=== PATIENT | male | born 1960 | race Caucasian/White ===

== ENCOUNTER → 2017-03-22 | Outpatient (CLI) | payer OTHER ==
--- NOTE | 2017-03-23 01:34 | REP ---
Clinical: Back pain. Technique: AP, lateral, swimmers views. Findings: Alignment and kyphosis maintained. No acute/chronic fracture or compression injury is identified. Moderate multilevel degenerative changes include endplate sclerosis, disc space narrowing and marginal osteophyte formation. Impression: Moderate multilevel degenerative changes. No acute fracture / compression injury or subluxation. Signed by Hernán Roth MD 03/23/2017 01:24 A
== END ==
LOC: M WUC 16:13
PROVIDERS: ATTEND Physician Assistant
DX: S29.012A Strain of muscle and tendon of back wall of thorax, initial encounter (principal); X58.XXXA Exposure to other specified factors, initial encounter; Y92.89 Other specified places as the place of occurrence of the external cause; Y93.89 Activity, other specified; Y99.8 Other external cause status

== ENCOUNTER → 2017-04-24 | Outpatient (CLI) | payer OTHER ==
[2017-04-24 11:34] LABS: MEAN CORPUSCULAR HEMOGLOBIN 32.8 pg (27.0-33.0); MEAN CORPUSCULAR HGB CONC 33.5 g/dl (32.0-36.5); MEAN CORPUSCULAR VOLUME 97.9 fl (80.0-96.0); RED CELL DISTRIBUTION WIDTH 12.7 % (11.5-14.5); WHITE BLOOD COUNT 7.9 K/mm3 (4.0-10.0)
[2017-04-24 12:48] LABS: ALBUMIN 3.8 GM/DL (3.2-5.2); ALBUMIN/GLOBULIN RATIO 1.09 (1.00-1.93); ALKALINE PHOSPHATASE 94 U/L (45-117); ALT/SGPT 24 U/L (12-78); ANION GAP 8 MEQ/L (8-16); AST/SGOT 16 U/L (15-37); BILIRUBIN,TOTAL 0.5 MG/DL (0.2-1.0); BLOOD UREA NITROGEN 18 MG/DL (7-18); CALCIUM LEVEL 8.7 MG/DL (8.5-10.1); CARBON DIOXIDE LEVEL 24 MEQ/L (21-32); CHLORIDE LEVEL 106 MEQ/L (98-107); CHOLESTEROL LEVEL 176 MG/DL (<200); CREATININE FOR GFR 0.74 MG/DL (0.70-1.30); GLOMERULAR FILTRATION RATE > 60.0 (>56); GLUCOSE, FASTING 100 MG/DL (70-105); POTASSIUM SERUM 4.2 MEQ/L (3.5-5.1); SODIUM LEVEL 138 MEQ/L (136-145); TOTAL PROTEIN 7.3 GM/DL (6.4-8.2); TRIGLYCERIDES LEVEL 72 MG/DL (<150)
--- NOTE | 2017-04-25 02:38 | REP ---
Clinical: Pain. Technique: Internal rotation, external rotation, and Y view. Findings: Mild degenerative changes include cortical irregularity at the acromioclavicular joint with subtle inferior spurring suggested as well as small inferior osteophyte along the humeral head. Subacromial space is normal. No periarticular calcifications identified. Surrounding soft tissues unremarkable. Impression: Mild arthritic degenerative changes. Signed by Hernán Roth MD 04/25/2017 02:30 A
--- NOTE | 2017-04-25 02:44 | REP ---
Clinical: Hypertension and history of COPD . Comparison: 12/16/2014 . Technique: PA and lateral. Findings: The mediastinum and cardiac silhouette are normal. The lung baldwin are clear and without acute consolidation, effusion, or pneumothorax. The skeletal structures are intact and normal. Impression: 1. No acute cardiopulmonary process. Signed by Hernán Roth MD 04/25/2017 02:37 A
--- NOTE | 2017-04-25 02:46 | REP ---
Clinical: Pain. Technique: AP, lateral, bilateral oblique and sunrise views of the right knee. Findings: Moderate tricompartmental osteoarthritic degenerative changes include marginal osteophytes, subchondral sclerosis, joint space narrowing, and mild chondrocalcinosis. Mild prepatellar soft tissue swelling cannot be excluded as well. No obvious effusion. No acute fracture or dislocation. Impression: Moderate tricompartmental osteoarthritic degenerative changes. Signed by Hernán Roth MD 04/25/2017 02:38 A
--- NOTE | 2017-04-25 07:08 | ECGEPIP ---
Stationary ECG Study [facility] Test Date: 2017-04-24 Pat Name: KEVIN WILLETT Department: Room: - Gender: M Director Speech And Hearing: EMANUEL : 1960 Requested By: Selena Merida Order Number: [id number] Reading MD: Sanjay Leong Measurements Intervals [place] Rate: 66 P: 59 OR: 160 QRS: 55 QRSD: 101 T: 58 QT: 392 QTc: 411 Interpretive Statements Normal sinus rhythm Incomplete right bundle-branch block Comparison tracing not on file Electronically Signed On 04-25-2017 7:08:16 EDT by Sanjay Leong
== END ==
LOC: M LAB 10:28
PROVIDERS: ATTEND Family Medicine
DX: I10 Essential (primary) hypertension (principal); J44.9 Chronic obstructive pulmonary disease, unspecified; R53.83 Other fatigue; M19.90 Unspecified osteoarthritis, unspecified site

== ENCOUNTER → 2018-12-07 | Outpatient (CLI) | payer OTHER ==
[2018-12-07 11:32] LABS: HEMATOCRIT 44.4 % (42.0-52.0); HEMOGLOBIN 14.5 g/dl (13.5-17.5); MEAN CORPUSCULAR HEMOGLOBIN 33.9 pg (27.0-33.0); MEAN CORPUSCULAR HGB CONC 32.7 g/dl (32.0-36.5); MEAN CORPUSCULAR VOLUME 103.7 fl (80.0-96.0); PLATELET COUNT, AUTOMATED 207 10^3/uL (150-450); RED BLOOD COUNT 4.28 10^6/uL (4.30-6.10); WHITE BLOOD COUNT 7.2 10^3/uL (4.0-10.0)
[2018-12-07 11:44] LABS: ALBUMIN 3.5 GM/DL (3.2-5.2); ALT/SGPT 16 U/L (12-78); BILIRUBIN,TOTAL 0.2 MG/DL (0.2-1.0); BLOOD UREA NITROGEN 13 MG/DL (7-18); CALCIUM LEVEL 8.6 MG/DL (8.5-10.1); CARBON DIOXIDE LEVEL 26 MEQ/L (21-32); CHLORIDE LEVEL 111 MEQ/L (98-107); CHOLESTEROL LEVEL 152 MG/DL (<200); CHOLESTEROL RISK RATIO 3.619 (<5); CREATININE FOR GFR 0.83 MG/DL (0.70-1.30); GLOMERULAR FILTRATION RATE > 60.0 (>56); GLUCOSE, FASTING 106 MG/DL (70-100); HDL CHOLESTEROL 42 MG/DL (>40); LDL CHOLESTEROL 89 MG/DL (<100); NON-HDL-C 110 MG/DL; POTASSIUM SERUM 4.4 MEQ/L (3.5-5.1); SODIUM LEVEL 143 MEQ/L (136-145); TESTOSTERONE 587 NG/DL (241-827); TOTAL 25(OH) VITAMIN D 14.4 NG/ML (30.0-100.0); TOTAL PROTEIN 6.7 GM/DL (6.4-8.2); TRIGLYCERIDES LEVEL 105 MG/DL (<150)
[2018-12-07 11:49] LABS: HEMOGLOBIN A1c 5.7 %
== END ==
LOC: M SMT 08:17
PROVIDERS: ATTEND Family Medicine
DX: I10 Essential (primary) hypertension (principal); R53.83 Other fatigue; E03.9 Hypothyroidism, unspecified

== ENCOUNTER → 2020-10-19 | Outpatient (CLI) | payer SELFPAY | LOC: M LABSMTC 13:53 | PROVIDERS: ATTEND Pediatrics | DX: Z20.828 Contact with and (suspected) exposure to other viral communicable diseases (principal) ==

== ENCOUNTER → 2020-12-24 | Outpatient (CLI) | payer SELFPAY ==
[~2020-12-24] MED LIST: CVS1CAP2 PO; CYAN500T14 PO; DIPH50CA PO; HYDR-4514 PO; IBUP-1857 PO; MOBI4TAB PO; THERTAB52 PO; VITA500079 PO
== END ==
LOC: M LABSMTC 11:18
PROVIDERS: ATTEND Anesthesiology
DX: Z01.812 Encounter for preprocedural laboratory examination (principal); Z20.822 Contact with and (suspected) exposure to COVID-19

== ENCOUNTER 2020-12-29 11:16 | Day surgery (SDC) | payer OTHER ==
[~2020-12-29] VITALS: Ht 182.9 cm; Wt 90.4 kg
[~2020-12-29 11:16] MED LIST changes: +NS 1,000 ML IV ONE
--- OUTSIDE RECORDS SUMMARY | 2020-12-29 11:22 | CCD | Continuity of Care Document ---
Author Author Sergio GROSS M.D Organization Unknown Address [address] [place] [address] Phone [phone] Care Team Providers Care Creative Guru Name Role Phone Fuad Loredo M.D. AUTM [phone] Problems Active Problems Provider Date Screening for malignant neoplasm of colon David godwin M.D. Onset: 12/22/2020 Social History Type Date Description Comments Sex Unknown ETOH Use Rarely consumes alcohol Tobacco Use Start: Unknown Patient is a current smoker, smo kes every day Recreational Drug Use Regularly uses Marijuana Allergies, Adverse Reactions, Alerts Description No Known Drug Allergies Medications Active Medications SIG Qnty Indications Ordering Provide r Date Sutab [id number] Tablets as directed 1box David Gross M.D. 12/22/[address] 1 cap by mouth every morning 90caps David Gross M.D. 021 Meloxicam 7.5mg Tablets Fuad Loredo M.D. Hydrocodone Bitartrate/Acetaminophen 7.5-325mg Tablets Fuad Loredo M.D. Advil Dual Action /Acetaminophen 125-250mg Tablets Unknown B12 Fast Dissolve 5000mcg Tablets Dispers Unknown D3 High Potency 125mcg (5000 Ut) C apsules Unknown Diphenhydramine HCL 50mg Capsules Unknown Probiotic Capsules Unknown Multiple Vitamin Tablets Unknown Immunizations Description No Information Available Vital Signs Date Vital Result Comment 12/22/2020 10:55am Height 70 inches 5'10" Weight 200.00 lb BP Systolic 133 mmHg BP Diastolic 85 mmHg Heart Rate 65 /min BMI (Body Mass Index) 28.7 kg/m2 Weight 90.720 kg Body Temperature 97.3 F Results Description No Information Available Procedures Description No Information Available Medical Devices Description No Information Available Encounters Type Date Location Provider Dx Diagnosis Office Visit 12/22/2020 10:30a Main Office David Gross M.D. Z 12.11 Encounter for screening for malignant neoplasm of colon R10.9 Unspecified abdominal pain Assessments Date Code Description Provider 12/22/2020 Z12.11 Screening for malignant neoplasm of colon David Gross M.D. 12/22/2020 R10.9 Unspecified abdominal pain Ellie Gross M.D. Plan of Treatment Future Appointment(s):* 12/29/2020 12:45 pm - David Gross M.D. at Main Office 12/22/2020 - David Gross M.D.* Z12.11 Screening for malignant neoplasm of colon* Comments:* 60 yo wm who presents for a screening colonoscopy, and an egd for abdominal pain/burning. Positive c/o abdominal pain, no weight loss, or change in bowel habits. No rectal bleeding. No family h/o colon cancer. No h/o chest pain, or sob. Plan:1.Schedule patient for a colonoscopy + egd.2.Informed consent given to the patient.3.Pt. advised to stop aspirin,plavix, and anticoagulants at least 3 to 7 days prior to the procedure. * R10.9 Unspecified abdominal pain Functional Status Description No Information Available Mental Status Description No Information Available Referrals Description No Information Available
--- OUTSIDE RECORDS SUMMARY | 2020-12-29 11:22 | CCD | Continuity of Care Document ---
Author Author Sergio GROSS M.D Organization Unknown Address [address] [place] [address] Phone [phone] Care Team Providers Care Alteration Specialist Name Role Phone Fuad Loredo M.D. AUTM [phone] Problems Active Problems Provider Date Screening for [...] Qnty Indications Ordering Provide r Date Sutab [id number] Tablets as directed 1box David Gross M.D. [...] Medical Devices Description No Information Available Encounters Description No Information Available Assessments Date Code Description Provider 12/22/2020 Z12.11 Screening for malignant neoplasm of colon David Gross M.D. Plan of Treatment Future Appointment(s):* [...] to 7 days prior to the procedure. Functional Status Description No Information Available Mental Status Description No Information Available Referrals Description No Information Available
--- OUTSIDE RECORDS SUMMARY | 2020-12-29 11:22 | CCD ---
Author Author [facility] Organization [facility] Address Unknown Phone Unavailable Care Team Providers Care Metal Pattern Maker Name Role Phone Bhakti Gross MD Unavailable Unavailable Bhakti Gross MD Unavailable Unavailable Bhakti Gross MD Unavailable Unavailable Bhakti Gross MD Unavailable Unavailable Bhakti Gross MD Unavailable Unavailable Bhakti Gross MD Unavailable Unavailable Bhakti Gross MD Unavailable Unavailable Bhakti Gross MD Unavailable Unavailable Bhakti Gross MD Unavailable Unavailable Bhakti Gross MD Unavailable Unavailable Bhakti Gross MD Unavailable Unavailable Bhakti Gross MD Unavailable Unavailable Bhakti Gross MD Unavailable Unavailable Bhakti Gross MD Unavailable Unavailable Bhakti Gross MD Unavailable Unavailable Bhakti Gross MD Unavailable Unavailable Bhakti Gross MD Unavailable Unavailable Bhakti Gross MD Unavailable Unavailable Bhakti Gross MD Unavailable Unavailable Bhakti Gross MD Unavailable Unavailable Bhakti Gross MD Unavailable Unavailable Bhakti Gross MD Unavailable Unavailable Bhakti Gross MD Unavailable Unavailable Bhakti Gross MD Unavailable Unavailable Bhakti Gross MD Unavailable Unavailable Bhakti Gross MD Unavailable Unavailable Bhakti Gross MD Unavailable Unavailable Bhakti Gross MD Unavailable Unavailable Bhakti Gross MD Unavailable Unavailable Bhakti Gross MD Unavailable Unavailable Bhakti Gross MD Unavailable Unavailable Bhakti Gross MD Unavailable Unavailable Bhakti Gross MD Unavailable Unavailable Ginny S David LAZO Unavailable Unavailable Ginny, S David MD Unavailable Unavailable Ginny, S David MD Unavailable Unavailable Ginny, S David MD Unavailable Unavailable Ginny, S David MD Unavailable Unavailable Ginny, S David MD Unavailable Unavailable Ginny, S David MD Unavailable Unavailable Ginny, S David MD Unavailable Unavailable Ginny, S David MD Unavailable Unavailable Ginny, S David MD Unavailable Unavailable Ginny, S David MD Unavailable Unavailable Ginny, S David MD Unavailable Unavailable Ginny, S David MD Unavailable Unavailable Ginny, S David MD Unavailable Unavailable Ginny, S David MD Unavailable Unavailable Ginny, S David MD Unavailable Unavailable Ginny, S David MD Unavailable Unavailable Michell Loredo MD Unavailable Unavailable Michell Loredo MD Unavailable Unavailable Michell Loredo MD Unavailable Unavailable Michell Loredo MD Unavailable Unavailable Michell Loredo MD Unavailable Unavailable Michell Loredo MD Unavailable Unavailable Michell Loredo MD Unavailable Unavailable Michell Loredo MD Unavailable Unavailable Michell Loredo MD Unavailable Unavailable Michell Loredo MD Unavailable Unavailable Michell Loredo MD Unavailable Unavailable Michell Loredo MD Unavailable Unavailable Michell Loredo MD Unavailable Unavailable Michell Loredo MD Unavailable Unavailable Michell Loredo MD Unavailable Unavailable Michell Loredo MD Unavailable Unavailable Michell Loredo MD Unavailable Unavailable Michell Loredo MD Unavailable Unavailable Michell Loredo MD Unavailable Unavailable Michell Loredo MD Unavailable Unavailable Michell Loredo MD Unavailable Unavailable Michell Loredo MD Unavailable Unavailable Michell Loredo MD Unavailable Unavailable Michell Loredo MD Unavailable Unavailable Michell Loredo MD Unavailable Unavailable Michell Loredo MD Unavailable Unavailable Michell Loredo MD Unavailable Unavailable Michell Loredo MD Unavailable Unavailable Michell Loredo MD Unavailable Unavailable Michell Loredo MD Unavailable Unavailable Michell Loredo MD Unavailable Unavailable Michell Loredo MD Unavailable Unavailable Michell Loredo MD Unavailable Unavailable Michell Loredo MD Unavailable Unavailable Loredo, Jacquie Moid MD Unavailable Unavailable Loredo, Jacquie Moid MD Unavailable Unavailable Loredo, Jacquie Moid MD Unavailable Unavailable Loredo, Jacquie Moid MD Unavailable Unavailable Loredo, Jacquie Moid MD Unavailable Unavailable Loredo, Jacquie Moid MD Unavailable Unavailable Loredo, Jacquie Moid MD Unavailable Unavailable Loredo, Jacquie Moid MD Unavailable Unavailable Loredo, Jacquie Moid MD Unavailable Unavailable Loredo, Jacquie Moid MD Unavailable Unavailable Loredo, Jacquie Moid MD Unavailable Unavailable Loredo, Jacquie Moid MD Unavailable Unavailable Loredo, Jacquie Moid MD Unavailable Unavailable Loredo, Jacquie Moid MD Unavailable Unavailable Loredo, Jacquie Moid MD Unavailable Unavailable Loredo, Jacquie Moid MD Unavailable Unavailable Loredo, Jacquie Moid MD Unavailable Unavailable Loredo, Jacquie Moid MD Unavailable Unavailable Loredo, Jacquie Moid MD Unavailable Unavailable Loredo, Jacquie Moid MD Unavailable Unavailable Loredo, Jacquie Moid MD Unavailable Unavailable Loredo, Jacquie Moid MD Unavailable Unavailable Loredo, Jacquie Moid MD Unavailable Unavailable Loredo, Jacquie Moid MD Unavailable Unavailable Loredo, Jacquie Moid MD Unavailable Unavailable Loredo, Jacquie Moid MD Unavailable Unavailable Loredo, Jacquie Moid MD Unavailable Unavailable Loredo, Jacquie Moid MD Unavailable Unavailable Loredo, Jacquie Moid MD Unavailable Unavailable Loredo, Jacquie Moid MD Unavailable Unavailable Loredo, Jacquie Moid MD Unavailable Unavailable Re-disclosure Warning The records that you are about to access may contain information from federally-assisted alcohol or drug abuse programs. If such information is present, then the following federally mandated warning applies: This information has been disclosed to you from records protected by federal confidentiality rules (42 CFR part 2). The federal rules prohibit you from making any further disclosure of this information unless further disclosure is expressly permitted by the written consent of the person to whom it pertains or as otherwise permitted by 42 CFR part 2. A general authorization for the release of medical or other information is NOT sufficient for this purpose. The Federal rules restrict any use of the information to criminally investigate or prosecute any alcohol or drug abuse patient.The records that you are about to access may contain highly sensitive health information, the redisclosure of which is protected by Article 27-F of the [place] State Public Health law. If you continue you may have access to information: Regarding HIV / AIDS; Provided by facilities licensed or operated by the [facility] Office of Mental Health; or Provided by the [facility] Office for People With Developmental Disabilities. If such information is present, then the following [facility] mandated warning applies: This information has been disclosed to you from confidential records which are protected by state law. State law prohibits you from making any further disclosure of this information without the specific written consent of the person to whom it pertains, or as otherwise permitted by law. Any unauthorized further disclosure in violation of state law may result in a fine or group home sentence or both. A general authorization for the release of medical or other information is NOT sufficient authorization for further disc losure. Family History Family Member Name Family Member Gender Family Member Status Date o f Status Description Data Source(s) Unknown Unknown Problem [facility] ([facility]) Encounters Encounter Providers Location Date Indications Data Source(s ) Office Visit Attender: David Gross MD Main Office 09:30:00 AM EST [facility] ([facility] ) Outpatient Referrer: Fuad Loredo MD 04/29/2020 11:35:00 AM E DT [facility] Outpatient Referrer: Fuad Loredo MD 04/29/2020 11:35:00 AM E DT [facility] Outpatient Referrer: Fuad Loredo MD 04/29/2020 11:25:00 AM E DT [facility] Outpatient Referrer: Fuad Loredo MD 04/29/2020 11:24:00 AM E DT [facility] Outpatient Referrer: Fuad Loredo MD 04/29/2020 11:24:00 AM E DT [facility] Medications Medication Brand Name Start Date Product Form Dose Route Admi nistrative Instructions Pharmacy Instructions Status Indications Reaction Description Data Source(s) Omeprazole 40 MG Delayed Release Oral Capsule Omeprazole 12/22/2020 12:00:00 AM EST ORAL active [facility] ([facility]) Sutab Sutab 12/22/2020 12:00:00 AM EST active [facility] ([facility]) Insurance Providers Payer name Policy type / Coverage type Policy ID Covered libertarian ID Covered libertarian's relationship to solitario Policy Solitario Plan Information FORMERLY [facility] PLAN [facility] [id number] SP [id number] SELF PAY ONLY [id number] SP [id number] [address](MCAID) O [id number] S [id number] FOR[facility]LY [facility]AN [facility] [id number] SP [id number] [facility](MCAID) O [id number] S [id number] [facility] Maintenance Organization (HMO) [id number] Self [id number] SELF PAY UNAVAILABLE SP [employer] [id number] SP [id number] Problems, Conditions, and Diagnoses Code Display Name Description Problem Type Effective Dates Data Source(s) 503182539 Screening for malignant neoplasm of colo n Screening for malignant neoplasm of colon Problem 12/22/2020 12:00:00 AM EST [facility] ([facility]) Results ID Date Data Source [id number] 12/24/2020 11:35:00 AM EST [facility] Name Value Range Interpretation Code Description Data Nata rce(s) Supporting Document(s) SARS coronavirus 2 RNA Not Detected [facility] [place] This lab was ordered by [facility] and reported by [facility]. ID Date Data Source [id number] 10/19/2020 12:00:00 AM EST [facility] Name Value Range Interpretation Code Description Data Nata rce(s) Supporting Document(s) 2019-nCoV RNA XXX JUAN+probe-Imp [facility] This lab was ordered by [facility] and reported by [facility]. ID Date Data Source [id number] 04/29/2020 12:00:00 AM EDT [facility] Fuad Loredo MD Patient Name: [facility]EENA WILLETT [facility] 1960[facility] [place] [address] Date of Exam: 04/29/2020PH#: Fax: [phone] EXAM: LUMBOSACRAL SPINE (4 VIEWS)CLINICAL INFORMATION: Back pain and degenerative changes.PRIORS: None.Patrial syndesmophyte/osteophyte formation is seen at every levelbilaterally but slightly more heavy on the right than left. The pediclesappear to be intact bilaterally. Vertebral body height and alignment iswithin normal limits. There is moderate to severe posterior degenerativedisc space narrowing at every level. There is anterior lipping at everylevel. There is degenerative facet joint change seen bilaterally at everylevel particularly L4-5 and L5-S1. There is no evidence of spondylolysis.IMPRESSION:Chronic changes as described above.ALEXIS Rodriguez/Jane you for referring KEVIN WILLETT to our office. Electronically Signed - CLYDE DE LA O DO 04/30/20 10:09 Name Value Range Interpretation Code Description Data Nata rce(s) Supporting Document(s) Procedure Vital Signs ID Date Data Source UNK Name Value Range Interpretation Code Description Data Source(s) Body temperature 97.3 [degF] 97.3 [degF] [facility] ([facility]) Body weight 90.720 kg 90.720 kg [facility]) Body mass index (BMI) [Ratio] 28.7 kg/m2 28.7 k g/m2 [facility] ([facility]) Heart rate 65 /min 65 /min [facility] ([facility]) Diastolic blood pressure 85 mm[Hg] 85 mm[Hg] [facility] ([facility]) Systolic blood pressure 133 mm[Hg] 133 mm[Hg] M EDENT ([facility]) Body weight 200.00 [lb_av] 200.00 [lb_av] MEDEN T ([facility]) Body height 70 [in_i] 70 [in_i] [facility]) 5'10"
[2020-12-29] MEDS ORDERED: propofoL 200 MG/20 ML VIAL As Ordered ONE ×2 (11:50→11:51)
[2020-12-29] MEDS ORDERED: LIDOCAINE 2% 100MG/5ML SDV (FOR ANES.) As Ordered ONE (11:50)
[2020-12-29] MEDS ORDERED: fentaNYL 100 MCG/2 ML INJECTION (J3010) As Ordered ONE (12:11)
--- NOTE | 2020-12-29 13:00 | ROOR ---
Patient Name: Sergio Dyer Procedure Date: 12/29/2020 12:41 PM Date of : 1960 Age: 60 Room: [facility] Gender: Male Note Status: Finalized Procedure: Upper Endoscopy + Biopsies Indications: Heartburn, Exclusion of Lopez's esophagus Providers: David Gross MD Referring MD: JACEK LUNDBERG MD Requesting Provider: Medicines: Monitored Anesthesia Care Complications: No immediate complications. Procedure: Pre-Anesthesia Assessment: - The heart rate, respiratory rate, oxygen saturations, blood pressure, adequacy of pulmonary ventilation, and response to care were monitored throughout the procedure. The Endoscope was introduced through the mouth, and advanced to the second part of duodenum. The upper GI endoscopy was accomplished without difficulty. The patient tolerated the procedure well. Findings: The Z-line was irregular and was found 40 cm from the incisors. Multiple biopsies were obtained with cold forceps for evaluation to rule out Lopez's Esophagus randomly at the gastroesophageal junction. Localized moderate inflammation characterized by adherent blood, congestion (edema), erosions and aphthous ulcerations was found in the gastric antrum. Biopsies were taken with a cold forceps for Helicobacter pylori testing. The exam of the duodenum was otherwise normal. Impression: - Z-line irregular, 40 cm from the incisors. - Mucosal changes suspicious for gastritis. Biopsied. - Multiple biopsies were obtained at the gastroesophageal junction. - The examination was otherwise normal. Recommendation: - Patient has a contact number available for emergencies. The signs and symptoms of potential delayed complications were discussed with the patient. Return to normal activities tomorrow. Written discharge instructions were provided to the patient. - Resume previous diet. - Discharge patient to home. - Follow an antireflux regimen. - Use Prilosec (omeprazole) 40 mg PO BID. - Use sucralfate tablets 1 gram PO BID. - Await pathology results. - Telephone GI clinic for pathology results in 1 week. - Return to referring physician. - The findings and recommendations were discussed with the patient. Procedure Code(s): --- Professional --- 94005, Esophagogastroduodenoscopy, flexible, transoral; with biopsy, single or multiple Diagnosis Code(s): --- Professional --- K22.8, Other specified diseases of esophagus K31.89, Other diseases of stomach and duodenum R12, Heartburn CPT copyright 2019 [employer]. All rights reserved. The codes documented in this report are preliminary and upon hydrator review may be revised to meet current compliance requirements. David Gross MD David Gross MD 12/29/2020 12:59:40 PM Electronically signed by David Gross MD Number of Addenda: 0 Note Initiated On: 12/29/2020 12:41 PM Estimated Blood Loss: Estimated blood loss: none.
--- NOTE | 2020-12-29 13:19 | ROOR ---
Patient Name: Sergio Dyer Procedure Date: 12/29/2020 12:42 PM Date of : 1960 Age: 60 Room: [facility] Gender: Male Note Status: Finalized Procedure: Total Colonoscopy to Cecum + Cold Snare Polypectomy + Hemoclip Indications: Screening for colorectal malignant neoplasm Providers: David Gross MD Referring MD: JACEK LUNDBERG MD Requesting Provider: Medicines: Monitored Anesthesia Care Complications: No immediate complications. Procedure: Pre-Anesthesia Assessment: - The heart rate, respiratory rate, oxygen saturations, blood pressure, adequacy of pulmonary ventilation, and response to care were monitored throughout the procedure. The Colonoscope was introduced through the anus and advanced to the cecum, identified by appendiceal orifice and ileocecal valve. The colonoscopy was performed without difficulty. The patient tolerated the procedure well. The quality of the bowel preparation was excellent. Findings: The perianal and digital rectal examinations were normal. Non-bleeding internal hemorrhoids were found during retroflexion. The hemorrhoids were small and Grade I (internal hemorrhoids that do not prolapse). Multiple small and large-mouthed diverticula were found in the recto-sigmoid colon, sigmoid colon and descending colon. A medium polyp was found in the cecum. The polyp was carpet-like. The polyp was removed with a cold snare. Resection and retrieval were complete. To prevent bleeding after the polypectomy, one hemostatic clip was successfully placed (MR conditional). There was no bleeding at the end of the procedure. The exam was otherwise without abnormality on direct and retroflexion views. Impression: - Non-bleeding internal hemorrhoids. - Diverticulosis in the recto-sigmoid colon, in the sigmoid colon and in the descending colon. - One medium polyp in the cecum, removed with a cold snare. Resected and retrieved. Clip (MR conditional) was placed. - The examination was otherwise normal on direct and retroflexion views. - The exam was otherwise normal to the cecum. Recommendation: - Patient has a contact number available for emergencies. The signs and symptoms of potential delayed complications were discussed with the patient. Return to normal activities tomorrow. Written discharge instructions were provided to the patient. - High fiber diet. - Discharge patient to home. - Continue present medications. - Await pathology results. - Telephone GI clinic for pathology results in 1 week. - Return to referring physician. - Repeat colonoscopy for surveillance based on pathology results. - The findings and recommendations were discussed with the patient. Procedure Code(s): --- Professional --- 43973, Colonoscopy, flexible; with removal of tumor(s), polyp(s), or other lesion(s) by snare technique Diagnosis Code(s): --- Professional --- Z12.11, Encounter for screening for malignant neoplasm of colon K64.0, First degree hemorrhoids K63.5, Polyp of colon K57.30, Diverticulosis of large intestine without perforation or abscess without bleeding CPT copyright 2019 [employer]. All rights reserved. The codes documented in this report are preliminary and upon slip cover estimator review may be revised to meet current compliance requirements. David Gross MD David Gross MD 12/29/2020 1:16:56 PM Electronically signed by David Gross MD Number of Addenda: 0 Note Initiated On: 12/29/2020 12:42 PM Estimated Blood Loss: Estimated blood loss: none.
[2020-12-29 13:40] VITALS: BP 124/81
== END 2020-12-29 13:50 | disposition home or self-care (01) ==
LOC: M OPP 11:16
PROVIDERS: ATTEND Internal Medicine Gastroenterology
DX: Z12.11 Encounter for screening for malignant neoplasm of colon (principal); R12 Heartburn; D12.0 Benign neoplasm of cecum; K64.0 First degree hemorrhoids; K57.30 Diverticulosis of large intestine without perforation or abscess without bleeding; K29.50 Unspecified chronic gastritis without bleeding; K22.8 Other specified diseases of esophagus; K31.89 Other diseases of stomach and duodenum; M19.90 Unspecified osteoarthritis, unspecified site; F31.9 Bipolar disorder, unspecified; F17.210 Nicotine dependence, cigarettes, uncomplicated; Z79.899 Other long term (current) drug therapy
CPT/HCPCS: 43239; 45385; 88305; J3010

== ENCOUNTER → 2021-01-06 | Outpatient (CLI) | payer OTHER ==
[~2021-01-06] MED LIST changes: -NS 1,000 ML IV ONE
[2021-01-06 11:17] LABS: HEMATOCRIT 46.5 % (42.0-52.0); HEMOGLOBIN 15.2 g/dl (13.5-17.5); MEAN CORPUSCULAR HEMOGLOBIN 32.8 pg (27.0-33.0); MEAN CORPUSCULAR HGB CONC 32.7 g/dl (32.0-36.5); MEAN CORPUSCULAR VOLUME 100.2 fl (80.0-96.0); PLATELET COUNT, AUTOMATED 190 10^3/uL (150-450); RED BLOOD COUNT 4.64 10^6/uL (4.30-6.10); WHITE BLOOD COUNT 9.3 10^3/uL (4.0-10.0)
[2021-01-06 11:37] LABS: HEMOGLOBIN A1c 5.4 %
[2021-01-06 11:57] LABS: ALBUMIN 3.8 GM/DL (3.2-5.2); ALT/SGPT 23 U/L (12-78); BILIRUBIN,TOTAL 0.5 MG/DL (0.2-1.0); BLOOD UREA NITROGEN 13 MG/DL (7-18); CALCIUM LEVEL 9.2 MG/DL (8.5-10.1); CARBON DIOXIDE LEVEL 30 MEQ/L (21-32); CHLORIDE LEVEL 105 MEQ/L (98-107); CHOLESTEROL LEVEL 214 MG/DL (<200); CHOLESTEROL RISK RATIO 5.944 (<5); CREATININE FOR GFR 0.95 MG/DL (0.70-1.30); GLOMERULAR FILTRATION RATE > 60.0 (>56); GLUCOSE, FASTING 96 MG/DL (70-100); HDL CHOLESTEROL 36 MG/DL (>40); LDL CHOLESTEROL 136 MG/DL (<100); NON-HDL-C 178 MG/DL; POTASSIUM SERUM 4.2 MEQ/L (3.5-5.1); PROSTATIC SPECIFIC AG MONITOR 0.72 NG/ML (< 4.00); SODIUM LEVEL 142 MEQ/L (136-145); TESTOSTERONE 716 NG/DL (241-827); TOTAL PROTEIN 7.2 GM/DL (6.4-8.2); TRIGLYCERIDES LEVEL 212 MG/DL (<150)
== END ==
LOC: M LAB 09:46
PROVIDERS: ATTEND Family Medicine
DX: E03.9 Hypothyroidism, unspecified (principal); R53.83 Other fatigue; D64.9 Anemia, unspecified

== ENCOUNTER → 2021-03-25 | Outpatient (CLI) | payer OTHER ==
--- NOTE | 2021-03-25 14:24 | REP ---
INDICATION: UA (L) KNEE COMPARISON: None. TECHNIQUE: AP, lateral, bilateral oblique and sunrise views. FINDINGS: Moderate tricompartmental osteoarthritic degenerative changes include cortical irregularity and osteophytosis with periarticular sclerosis and medial as well as patellofemoral joint space narrowing. No acute fracture or dislocation. No effusion. IMPRESSION: Moderate tricompartmental osteoarthritic degenerative changes. <Electronically signed by Hernán Roth > 03/25/21 [id number]
== END ==
LOC: M RAD 09:27
PROVIDERS: ATTEND Family Medicine
DX: M17.12 Unilateral primary osteoarthritis, left knee (principal)

== ENCOUNTER → 2021-08-04 | Outpatient (CLI) | payer OTHER ==
[2021-08-04 08:57] LABS: HEMATOCRIT 43.4 % (42.0-52.0); MEAN CORPUSCULAR HGB CONC 34.6 g/dl (32.0-36.5); MEAN CORPUSCULAR VOLUME 98.4 fl (80.0-96.0); PLATELET COUNT, AUTOMATED 215 10^3/uL (150-450); RED BLOOD COUNT 4.41 10^6/uL (4.30-6.10); WHITE BLOOD COUNT 8.8 10^3/uL (4.0-10.0)
[2021-08-04 09:22] LABS: ALBUMIN 3.7 GM/DL (3.2-5.2); ALT/SGPT 25 U/L (12-78); BILIRUBIN,TOTAL 0.5 MG/DL (0.2-1.0); BLOOD UREA NITROGEN 12 MG/DL (7-18); CALCIUM LEVEL 9.1 MG/DL (8.5-10.1); CARBON DIOXIDE LEVEL 27 MEQ/L (21-32); CHLORIDE LEVEL 110 MEQ/L (98-107); CHOLESTEROL LEVEL 199 MG/DL (<200); CHOLESTEROL RISK RATIO 6.218 (<5); CREATININE FOR GFR 0.74 MG/DL (0.70-1.30); GLOMERULAR FILTRATION RATE > 60.0 (>56); GLUCOSE, FASTING 106 MG/DL (70-100); HDL CHOLESTEROL 32 MG/DL (>40); LDL CHOLESTEROL 131 MG/DL (<100); NON-HDL-C 167 MG/DL; POTASSIUM SERUM 4.3 MEQ/L (3.5-5.1); PROSTATIC SPECIFIC AG MONITOR 0.92 NG/ML (< 4.00); SODIUM LEVEL 140 MEQ/L (136-145); TOTAL PROTEIN 7.2 GM/DL (6.4-8.2); TRIGLYCERIDES LEVEL 179 MG/DL (<150)
[2021-08-04 09:29] LABS: HEMOGLOBIN A1c 5.4 %
[2021-08-04 10:39] LABS: TESTOSTERONE 426 NG/DL (241-827)
== END ==
LOC: M LAB 08:05
PROVIDERS: ATTEND Family Medicine
DX: R53.83 Other fatigue (principal); I10 Essential (primary) hypertension; E03.9 Hypothyroidism, unspecified

== ENCOUNTER → 2021-09-27 | Outpatient (CLI) | payer OTHER ==
--- NOTE | 2021-09-27 09:34 | REP ---
INDICATION: PAIN/OA COMPARISON: Report dated 04/24/2017 TECHNIQUE: Internal rotation, external rotation, and Y view. FINDINGS: Spurring along the inferior margin of the acromioclavicular joint as well as small osteophyte forming along the inferior margin of the humeral head best identified on external rotation view. Subacromial space is normal. No obvious loose bodies are identified. No evidence for acute fracture or dislocation. IMPRESSION: Early moderate arthritic changes which may be slightly progressive from prior report. <Electronically signed by Hernán Roth > 09/27/21 [id number]
== END ==
LOC: M RAD 09:11
PROVIDERS: ATTEND Family Medicine
DX: M19.90 Unspecified osteoarthritis, unspecified site (principal)

== ENCOUNTER → 2021-12-13 | Outpatient (CLI) | payer OTHER ==
[2021-12-13 10:03] LABS: HEMATOCRIT 47.7 % (42.0-52.0); HEMOGLOBIN 15.7 g/dl (13.5-17.5); MEAN CORPUSCULAR HEMOGLOBIN 33.1 pg (27.0-33.0); MEAN CORPUSCULAR HGB CONC 32.9 g/dl (32.0-36.5); MEAN CORPUSCULAR VOLUME 100.6 fl (80.0-96.0); PLATELET COUNT, AUTOMATED 213 10^3/uL (150-450); RED BLOOD COUNT 4.74 10^6/uL (4.30-6.10)
[2021-12-13 10:55] LABS: ALBUMIN 4.3 GM/DL (3.2-5.2); ALT/SGPT 24 U/L (12-78); BILIRUBIN,TOTAL 0.4 MG/DL (0.2-1.0); BLOOD UREA NITROGEN 11 MG/DL (7-18); CALCIUM LEVEL 9.8 MG/DL (8.5-10.1); CARBON DIOXIDE LEVEL 28 MEQ/L (21-32); CHLORIDE LEVEL 106 MEQ/L (98-107); CHOLESTEROL LEVEL 198 MG/DL (<200); CREATININE FOR GFR 0.76 MG/DL (0.70-1.30); GLOMERULAR FILTRATION RATE > 60.0 (>56); GLUCOSE, FASTING 110 MG/DL (70-100); HDL CHOLESTEROL 45 MG/DL (>40); LDL CHOLESTEROL 119 MG/DL (<100); NON-HDL-C 153 MG/DL; POTASSIUM SERUM 4.4 MEQ/L (3.5-5.1); SODIUM LEVEL 138 MEQ/L (136-145); TOTAL PROTEIN 7.8 GM/DL (6.4-8.2); TRIGLYCERIDES LEVEL 170 MG/DL (<150)
== END ==
LOC: M RAD 08:27
PROVIDERS: ATTEND Family Medicine
DX: I10 Essential (primary) hypertension (principal); R53.83 Other fatigue; E03.9 Hypothyroidism, unspecified; J44.9 Chronic obstructive pulmonary disease, unspecified; R91.8 Other nonspecific abnormal finding of lung field

== ENCOUNTER → 2022-09-30 | Outpatient (CLI) | payer OTHER | LOC: M EKG 10:50 | PROVIDERS: ATTEND Orthopaedic Surgery | DX: M75.121 Complete rotator cuff tear or rupture of right shoulder, not specified as traumatic (principal) ==

== ENCOUNTER → 2023-08-29 | Outpatient (CLI) | payer OTHER ==
[2023-08-29 10:11] LABS: HEMATOCRIT 41.7 % (42.0-52.0); HEMOGLOBIN 13.9 g/dl (13.5-17.5); MEAN CORPUSCULAR HEMOGLOBIN 34.2 pg (27.0-33.0); MEAN CORPUSCULAR HGB CONC 33.3 g/dl (32.0-36.5); MEAN CORPUSCULAR VOLUME 102.5 fl (80.0-96.0); PLATELET COUNT, AUTOMATED 178 10^3/uL (150-450); RED BLOOD COUNT 4.07 10^6/uL (4.30-6.10); WHITE BLOOD COUNT 7.9 10^3/uL (4.0-10.0)
[2023-08-29 10:26] LABS: HEMOGLOBIN A1c 4.8 % (4.0-6.0)
[2023-08-29 10:36] LABS: C REACTIVE PROTEIN QUANTITATIV < 0.40 MG/DL (<1.0)
[2023-08-29 10:41] LABS: ALKALINE PHOSPHATASE 85 U/L (46-116); ALT/SGPT 20 U/L (7.0-40); AST/SGOT 17 U/L (<34); BILIRUBIN,TOTAL 0.6 MG/DL (0.3-1.2); BLOOD UREA NITROGEN 15 MG/DL (9-23); CALCIUM LEVEL 9.1 MG/DL (8.3-10.6); CARBON DIOXIDE LEVEL 27 MMOL/L (20-31); CHLORIDE LEVEL 109 MMOL/L (98-107); CHOLESTEROL LEVEL 142 MG/DL (<200); CHOLESTEROL RISK RATIO 3.36 (<5); GLOMERULAR FILTRATION RATE > 60.0 (>49); GLUCOSE, FASTING 100 MG/DL (74-106); HDL CHOLESTEROL 42.2 MG/DL (>40); LDL CHOLESTEROL 84.6 MG/DL (<100); NON-HDL-C 99.8 MG/DL; POTASSIUM SERUM 4.3 MMOL/L (3.5-5.1); PROSTATIC SPECIFIC AG MONITOR 1.52 NG/ML (< 4.00); SODIUM LEVEL 139 MMOL/L (136-145); TESTOSTERONE 860 NG/DL (241-827); THYROID STIMULATING HORMONE 2.166 uIU/ML (0.55-4.78); TOTAL PROTEIN 6.9 G/DL (5.7-8.2); TRIGLYCERIDES LEVEL 76 MG/DL (<150)
== END ==
LOC: M RAD 08:54
PROVIDERS: ATTEND Family Medicine
DX: J44.9 Chronic obstructive pulmonary disease, unspecified (principal); D64.9 Anemia, unspecified; R53.83 Other fatigue

== ENCOUNTER → 2023-09-14 | Outpatient (CLI) | payer OTHER | LOC: M RAD 14:55 | PROVIDERS: ATTEND Family Medicine | DX: M25.532 Pain in left wrist (principal) ==

== ENCOUNTER → 2024-01-01 | Outpatient (CLI) | payer OTHER | LOC: M RAD 14:53 | PROVIDERS: ATTEND Family Medicine | DX: M51.36 Other intervertebral disc degeneration, lumbar region (principal) ==

== ENCOUNTER → 2024-06-08 | Outpatient (CLI) | payer OTHER | LOC: M RAD 12:56 | PROVIDERS: ATTEND Physician Assistant | DX: M43.04 Spondylolysis, thoracic region (principal) ==

== ENCOUNTER → 2024-07-08 | Outpatient (CLI) | payer OTHER | LOC: M RAD 16:16 | PROVIDERS: ATTEND Physician Assistant | DX: M47.896 Other spondylosis, lumbar region (principal) ==

== ENCOUNTER → 2024-07-19 | Outpatient (CLI) | payer OTHER ==
[2024-07-19 09:09] LABS: HEMATOCRIT 40.7 % (42.0-52.0); HEMOGLOBIN 13.9 g/dl (13.5-17.5); MEAN CORPUSCULAR HEMOGLOBIN 34.7 pg (27.0-33.0); MEAN CORPUSCULAR HGB CONC 34.2 g/dl (32.0-36.5); MEAN CORPUSCULAR VOLUME 101.5 fl (80.0-96.0); PLATELET COUNT, AUTOMATED 161 10^3/uL (150-450); RED BLOOD COUNT 4.01 10^6/uL (4.30-6.10)
[2024-07-19 09:23] LABS: HEMOGLOBIN A1c 5.1 % (4.0-6.0)
[2024-07-19 09:32] LABS: ALBUMIN 3.9 G/DL (3.2-5.2); ALKALINE PHOSPHATASE 87 U/L (46-116); ALT/SGPT 19 U/L (7.0-40); AST/SGOT 12 U/L (<34); BILIRUBIN,TOTAL 0.5 MG/DL (0.3-1.2); BLOOD UREA NITROGEN 18 MG/DL (9-23); CALCIUM LEVEL 9.6 MG/DL (8.3-10.6); CARBON DIOXIDE LEVEL 29 MMOL/L (20-31); CHLORIDE LEVEL 110 MMOL/L (98-107); CHOLESTEROL LEVEL 180 MG/DL (<200); CHOLESTEROL RISK RATIO 3.56 (<5); GLOMERULAR FILTRATION RATE > 60.0 (>49); GLUCOSE, FASTING 97 MG/DL (74-106); HDL CHOLESTEROL 50.5 MG/DL (>40); LDL CHOLESTEROL 112.3 MG/DL (<100); NON-HDL-C 129.5 MG/DL; POTASSIUM SERUM 4.7 MMOL/L (3.5-5.1); SODIUM LEVEL 142 MMOL/L (136-145); TOTAL PROTEIN 7.1 G/DL (5.7-8.2); TRIGLYCERIDES LEVEL 86 MG/DL (<150)
[2024-07-19 09:33] LABS: PROSTATIC SPECIFIC AG MONITOR 2.47 NG/ML (< 4.00)
[2024-07-19 09:37] LABS: THYROID STIMULATING HORMONE 1.352 uIU/ML (0.55-4.78)
[2024-07-19 09:38] LABS: TESTOSTERONE 777 NG/DL (241-827); TOTAL 25(OH) VITAMIN D 35.2 NG/ML (20.0-100.0)
== END ==
LOC: M LAB 08:38
PROVIDERS: ATTEND Family Medicine
DX: R53.83 Other fatigue (principal); I10 Essential (primary) hypertension; E03.9 Hypothyroidism, unspecified

== ENCOUNTER → 2024-08-13 | Outpatient (CLI) | payer OTHER ==
[2024-08-13 07:49] LABS: PLATELET COUNT, AUTOMATED 157 10^3/uL (150-450)
[2024-08-13 08:04] LABS: INR 0.99; PARTIAL THROMBOPLASTIN TIME 30.7 SECONDS (24.8-34.2); PROTHROMBIN TIME 12.8 SECONDS (12.5-14.5)
== END ==
LOC: M LAB 07:20
PROVIDERS: ATTEND Physician Assistant
DX: Z01.818 Encounter for other preprocedural examination (principal)

== ENCOUNTER → 2024-12-30 | Outpatient (CLI) | payer OTHER | LOC: M PLAIMG 12:45 | PROVIDERS: ATTEND Physician Assistant | DX: M47.22 Other spondylosis with radiculopathy, cervical region (principal); M48.02 Spinal stenosis, cervical region ==

== ENCOUNTER → 2025-01-20 | Outpatient (CLI) | payer OTHER ==
[2025-01-20 08:16] LABS: HEMATOCRIT 37.2 % (42.0-52.0); HEMOGLOBIN 12.5 g/dl (13.5-17.5); MEAN CORPUSCULAR HEMOGLOBIN 34.2 pg (27.0-33.0); MEAN CORPUSCULAR HGB CONC 33.6 g/dl (32.0-36.5); MEAN CORPUSCULAR VOLUME 101.9 fl (80.0-96.0); PLATELET COUNT, AUTOMATED 153 10^3/uL (150-450); RED BLOOD COUNT 3.65 10^6/uL (4.30-6.10); WHITE BLOOD COUNT 5.6 10^3/uL (4.0-10.0)
[2025-01-20 08:32] LABS: HEMOGLOBIN A1c 5.3 % (4.0-6.0)
[2025-01-20 08:50] LABS: ALBUMIN 3.4 G/DL (3.2-5.2); ALKALINE PHOSPHATASE 78 U/L (40-129); ALT/SGPT 10 U/L (7.0-40); AST/SGOT 11 U/L (<34); BILIRUBIN,TOTAL 0.3 MG/DL (0.3-1.2); BLOOD UREA NITROGEN 13 MG/DL (9-23); CALCIUM LEVEL 8.4 MG/DL (8.3-10.6); CARBON DIOXIDE LEVEL 26 MMOL/L (20-31); CHLORIDE LEVEL 112 MMOL/L (98-107); CHOLESTEROL LEVEL 170 MG/DL (<200); CHOLESTEROL RISK RATIO 4.38 (<5); CREATININE FOR GFR 0.77 MG/DL (0.70-1.30); GLOMERULAR FILTRATION RATE > 60.0 (>49); GLUCOSE, FASTING 105 MG/DL (74-106); HDL CHOLESTEROL 38.8 MG/DL (>40); NON-HDL-C 131.2 MG/DL; POTASSIUM SERUM 3.9 MMOL/L (3.5-5.1); PROSTATIC SPECIFIC AG MONITOR 2.56 NG/ML (< 4.00); SODIUM LEVEL 143 MMOL/L (136-145); TOTAL PROTEIN 6.3 G/DL (5.7-8.2); TRIGLYCERIDES LEVEL 71 MG/DL (<150)
[2025-01-20 08:51] LABS: THYROID STIMULATING HORMONE 1.612 uIU/ML (0.55-4.78)
[2025-01-20 08:52] LABS: TESTOSTERONE 809 NG/DL (241-827); TOTAL 25(OH) VITAMIN D 74.9 NG/ML (20.0-100.0)
== END ==
LOC: M LAB 07:46
PROVIDERS: ATTEND Family Medicine
DX: D64.9 Anemia, unspecified (principal); R53.83 Other fatigue; E03.9 Hypothyroidism, unspecified

== ENCOUNTER → 2025-02-28 | Outpatient (CLI) | payer OTHER ==
[2025-02-28 09:09] LABS: PLATELET COUNT, AUTOMATED 175 10^3/uL (150-450)
[2025-02-28 09:20] LABS: INR 0.92; PARTIAL THROMBOPLASTIN TIME 29.4 SECONDS (24.8-34.2); PROTHROMBIN TIME 12.6 SECONDS (12.5-14.5)
== END ==
LOC: M LAB 08:24
PROVIDERS: ATTEND Physician Assistant Surgical
DX: Z01.818 Encounter for other preprocedural examination (principal)